=== PATIENT | female | born 1985 | race Two or more races ===

== ENCOUNTER → 2023-11-19 | Outpatient (CLI) | payer MEDICAID ==
[2023-11-19 09:09] LABS: Basophils # (auto) 0 10 ^3/uL (0-0.2); Basophils % (auto) 0.5 % (0.0-2.0); Eosinophils # (auto) 0 10 ^3/uL (0-0.8); Eosinophils % (auto) 1.2 % (0.0-7.0); Hematocrit 27.8 % (36.0-46.0); Hemoglobin 8.7 g/dL (12.2-16.2); Lymphocytes # (auto) 0.8 10 ^3/uL (0.4-5.4); Lymphocytes % (auto) 19.8 % (10.0-50.0); Mean Corpuscular Hemoglobin 24.3 pg (28.0-32.0); Mean Corpuscular Hgb Conc. 31.2 g/dL (32.0-36.0); Mean Corpuscular Volume 77.9 fL (80.0-100.0); Monocytes # (auto) 0.3 10 ^3/uL (0-1.3); Monocytes % (auto) 8.2 % (0.0-12.0); Neutrophils # (auto) 2.7 10 ^3/uL (1.6-8.6); Neutrophils % (auto) 70.3 % (37.0-80.0); Nucleated Red Blood Cells % 0.2 %; Red Blood Cells 3.57 10^6/uL (4.0-5.20); Red Cell Distribution Width 18.6 % (11.8-14.3); White Blood Cell 3.8 10^3/uL (4.4-10.8)
[2023-11-20 11:14] LABS: Leuteinizing Hormone 4.2 IU/L
[2023-11-20 11:20] LABS: Follicle Stimulating Hormone 7.34 IU/L (SEE BELOW)
== END | disposition home or self-care (01) ==
LOC: LAB 08:53
PROVIDERS: ATTEND Obstetrics & Gynecology
DX: R10.2 Pelvic and perineal pain (principal)
CPT/HCPCS: 36415; 82670; 83001; 83002; 84403; 84443; 85025

== ENCOUNTER 2024-04-03 05:57 | Day surgery (SDC) | payer MEDICAID ==
[2024-03-31 12:39] LABS: Urine Bacteria None Seen /hpf (None Seen)
[2024-03-31 13:05] LABS: Basophils # (auto) 0 10 ^3/uL (0-0.2); Eosinophils # (auto) 0 10 ^3/uL (0-0.8); Lymphocytes # (auto) 0.9 10 ^3/uL (0.4-5.4); Monocytes # (auto) 0.4 10 ^3/uL (0-1.3); Neutrophils # (auto) 3.1 10 ^3/uL (1.6-8.6); White Blood Cell 4.4 10^3/uL (4.4-10.8)
[2024-03-31 13:07] LABS: Basophils % (auto) 0.3 % (0.0-2.0); Hematocrit 28.1 % (36.0-46.0); Lymphocytes % (auto) 19.7 % (10.0-50.0); Mean Corpuscular Hemoglobin 23.6 pg (28.0-32.0); Mean Corpuscular Volume 73.8 fL (80.0-100.0); Platelet Count (auto) 261 10^3/uL (140-450); Red Blood Cells 3.81 10^6/uL (4.0-5.20); Red Cell Distribution Width 19.6 % (11.8-14.3)
[2024-03-31 13:14] LABS: Urine Blood Negative /uL (Negative); Urine Clarity Turbid (Clear); Urine Color Light-Yellow (Yellow); Urine Mucus FEW (None Seen); Urine Protein, UAD TRACE (Negative); Urine Specific Gravity 1.028 (1.001-1.035); Urine Urobilinogen 2 mg/dL (Negative); Urine WBC 11 /hpf (0 - 5); Urine pH 6.5 (5.0-9.0)
[2024-03-31 13:17] LABS: INR 1.15 (0.9-1.15); Prothrombin Time 12.1 sec (9.3-11.8)
[2024-03-31 13:32] LABS: Alanine Aminotransferase 21 U/L (7-40); Albumin 4.5 g/dL (3.2-4.8); Alkaline Phosphatase 67 U/L (46-116); Anion Gap 6 (5-15); Aspartate Aminotransferase 30 U/L (13-40); BUN/Creatinine Ratio 17.2 (10.0-20.0); Bilirubin, Total 1.2 mg/dL (0.2-1.0); Blood Urea Nitrogen 11 mg/dL (9-23); Calcium 9.2 mg/dL (8.7-10.4); Carbon Dioxide 27 mmol/L (20-30); Chloride 108 mmol/L (98-107); Glucose 94 mg/dL (74-106); Potassium 3.6 mmol/L (3.5-5.1); Sodium 141 mmol/L (136-145); Total Protein 7.5 g/dL (5.7-8.2)
[~2024-04-03] VITALS: Ht 165.1 cm; Wt 78.0 kg
[~2024-04-03 05:57] MED LIST: ACYC400T16 PO; LEVO125T PO
[2024-04-03] MEDS ORDERED: ZOFR4T PO (07:14)
[2024-04-03] MEDS ORDERED: HYDR-4072 PO (07:14)
[2024-04-03] MEDS ORDERED: LACTATED RINGER'S 1,000 ML IV SCH (07:15)
[2024-04-03] MEDS ORDERED: ONDANSETRON HCL 4 MG/2 ML VIAL IV PRN (07:15)
[2024-04-03] MEDS ORDERED: fentaNYL CITRATE 100 MCG/2 ML VL ONE (07:28)
[2024-04-03] MEDS ORDERED: GLYCOPYRROLATE 0.2 MG/ML 1ML VIAL ONE (07:29)
[2024-04-03] MEDS ORDERED: DexAMETHasone SOD PHOS 10MG/1ML VIAL INJ ONE (07:29)
[2024-04-03] MEDS ORDERED: ONDANSETRON HCL 4 MG/2 ML VIAL ONE (07:29)
[2024-04-03] MEDS ORDERED: LIDOCAINE 2% (LOCAL ANESTH.) PF 5ml SDV ONE (07:29)
[2024-04-03] MEDS ORDERED: KETOROLAC TROMETH 30 MG/ML 1ML VIAL ONE (07:29)
[2024-04-03] MEDS ORDERED: ePHEDrine SULFATE 50 MG/ML AMP ONE (07:29)
[2024-04-03] MEDS ORDERED: PROPOFOL 10 MG/ML 20 ML IV ONE (07:29)
[2024-04-03] MEDS ORDERED: MEPERIDINE HCL (50 MG/ML) 1 ML VIAL ONE (07:29)
[2024-04-03] MEDS ORDERED: MIDAZOLAM HCL 2MG/2ML 2ml VIAL (1mg/ml) ONE (07:29)
[2024-04-03] MEDS: ceFAZolin 2 GM/D5W100ml 100 ML IV ONE (07:33)
[2024-04-03] MEDS ORDERED: KETAMINE 50mg/ML 1ml syringe ONE (08:10)
[2024-04-03 08:15] VITALS: TEMP 97.2; O2SAT 98
[2024-04-03] MEDS ORDERED: HYDROmorphone HCL 2 MG/ML VL/or syr IV PRN (08:30)
[2024-04-03] MEDS ORDERED: ONDANSETRON HCL 4 MG/2 ML VIAL IV ONE (08:30)
[2024-04-03 09:15] VITALS: BP 91/49; PULSE 60; RESP 11; O2SAT 97
== END 2024-04-03 09:26 | disposition home or self-care (01) ==
LOC: SUR 05:57
PROVIDERS: ATTEND Obstetrics & Gynecology
DX: N93.9 Abnormal uterine and vaginal bleeding, unspecified (principal); E03.9 Hypothyroidism, unspecified; Z79.890 Hormone replacement therapy; Z79.899 Other long term (current) drug therapy; Z98.82 Breast implant status; Z86.2 Personal history of diseases of the blood and blood-forming organs and certain disorders involving the immune mechanism; Z86.16 Personal history of COVID-19
CPT/HCPCS: 36415; 58563; 80053; 81001; 81025; 84702; 85025; 85610; 85730; 86850; 86900; 86901; 88305; J1100; J1885; J2001; J2175; J2250; J2405; J2704; J3010